=== PATIENT | female | born 1945 | race Caucasian/White ===

== ENCOUNTER 2017-01-04 16:20 | Inpatient (IN) | payer MEDICARE, OTHER ==
[~2017-01-04] VITALS: Ht 171.4 cm; Wt 71.0 kg
[2017-01-04 17:25] VITALS: BP 133/65; PULSE 77; RESP 18; O2SAT 100
--- NOTE | 2017-01-04 17:57 | ED.REPORT ---
HPI-Extremity Problem Lower Date of Service January 04, 2017 ED Provider: Roderick Mendenhall MD Pt is a healthy 71 y/o female presenting to the ED via EMS due to right ankle injury which occurred at about 14:00 today. The patient was hiking with her friend and began sliding 5 ft down a steep bank and attempted to slow her descent with her right foot which subsequently was caught under a branch. Medics had to carry her 1 mile + on a backboard. She denies any other injuries or sites of pain, any numbness, weakness, or inability to wiggle her toes. Medics report an obvious dislocation of the right ankle. DP and PT pulses were intact on scene and on route. She is not anticoagulated. NPO as of 13:30. Nursing Notes Stated Complaint: RIGHT ANKLE INJURY Chief Complaint: Extremity Trauma Nursing Notes Reviewed: Yes Allergies: Coded Allergies: No Known Allergies (Unverified , 01/04/17) Scheduled PRN oxyCODONE-Acetaminophen 5-325 mg (oxyCODONE-Acetaminophen 5-325 mg) 1 Each Tablet 1 TAB PO Q4H PRN PRN For Pain General Time Seen by MD: 17:39 Chief Complaint Ankle injury right Hx Obtained From: Patient, EMS Arrived By: Ambulance Onset Occurred: 1 - 4 hours ago Symptom Duration: Since onset Location: : Ankle right Quality: Painful Severity: Current: Moderate Severity: Maximum: Severe Exacerbated by: Range of motion Similar Sx Previous: No Past Medical History Past Medical History Bipolar disorder Anxiety Past Surgical History None reported Smoking History Former Smoker Ambulatory Status Independent Review of Systems Constitutional: Denies: Chills, Fever Musculoskeletal: Reports: Extremity pain, Extremity swelling Skin: Denies Rash Neurologic: Denies: Change LOC, Numbness, Syncope, Weakness Complete sys rev & neg: except as marked. Physical Exam Initial Vital Signs Vital Signs (First) Date Time Temp Pulse Resp B/P Pulse Ox O2 Delivery O2 Flow Rate FiO2 01/04/17 17:25 36.4 77 18 133/65 100 Room Air Initial VS: Reviewed, Vital signs normal Head / Eyes: Atraumatic, Normocephalic, PERRL ENT: Mucous membranes moist, Conjunctiva normal, No scleral icterus Neck: Supple, Full range of motion Respiratory: Breath sounds normal, Clear to auscultation, No respiratory distress Cardiovascular: Regular rate & rhythm, Heart sounds normal, Intact distal pulses Abdomen / GI: Soft, Non-tender Upper Extremities: Vascular intact, Neuro intact, No swelling, No tenderness Skin: Warm, Dry, No cyanosis Neurologic: Alert, Oriented, Nonfocal Psychiatric: Mood/affect normal, Behavior normal, Normal thought content Lower Extremity / Pelvis / MS: Neurologic intact, Vascular intact, No compartment syndrome Ankle / Foot: Neurologic intact, Vascular intact Obvious deformity of the right ankle with external rotation of the right foot Sensation intact Warm and well perfused DP and PT pulses intact General/Constitutional: Awake, Alert, No acute distress, Well appearing, Cooperative, Not toxic appearing Interpretation & Diagnostics Lab Results Interpretation Result Diagram: 01/04/17 1824 01/04/17 1824 Test 01/04/17 18:24 White Blood Count 14.7th/mm3 (3.8-10.1) Red Blood Count 3.76mil/mm3 (3.90-5.20) Hemoglobin 10.8g/dL (12.0-15.6) Hematocrit 31.4% (35.0-46.0) Mean Corpuscular Volume 83.5fL (81-100) Mean Corpuscular Hemoglobin 28.7pg (27.0-35.0) Mean Corpuscular Hemoglobin Concent 34.4% (32.0-37.0) Red Cell Distribution Width 12.5% (12.3-15.4) Platelet Count 305bil/L (150-400) Neutrophils (%) (Auto) 86.2% (40-74) Lymphocytes (%) (Auto) 8.2% (14-46) Monocytes (%) (Auto) 5.3% (4-12) Eosinophils (%) (Auto) 0% (0-5) Basophils (%) (Auto) 0.1% (0-3) Prothrombin Time 10.9sec (8.1-12.5) Prothromb Time International Ratio 1.02ratio Sodium Level 124mEq/L (134-144) Potassium Level 3.5mEq/L (3.5-5.2) Chloride Level 89mEq/L (97-108) Carbon Dioxide Level 19mmol/L (18-29) Blood Urea Nitrogen 15mg/dL (8-27) Creatinine 0.69mg/dL (0.57-1.00) Estimat Glomerular Filtration Rate 120mL/min (>59) Glucose Level 117mg/dL (60-99) Calcium Level 8.5mg/dL (8.5-10.1) Hold Benitez Top Tube Received (Received) X-Ray Interpretation Xray Interpretation: IMPRESSION: 1. Significant distal fibular and medial malleolus fractures with dislocation at the tibiotalar joint. 2. Medial subluxation of the talus, with cortical irregularity of the talus seen on lateral view suspicious for fracture. Dictated by: Kailyn Sanderson M.D. on 01/04/2017 at 18:56 Approved by: Kailyn Sanderson M.D. on 01/04/2017 at 18:58 Study Performed: 2 view X-Ray Ordered: Ankle right Interpretation / Wet Read by: Interpret - Radiologist Xray Interpretation: IMPRESSION: Comminuted distal fibular fracture as well as medial malleolar fracture. Significant dislocation of tibiotalar joint with subluxation of the talus. Please see x-ray ankle report for further details. Dictated by: Kailyn Sanderson M.D. on 01/04/2017 at 18:55 Approved by: Kailyn Sanderson M.D. on 01/04/2017 at 18:56 Study Performed: 2 view X-Ray Ordered: Tibia fibula right Interpretation / Wet Read by: Interpret - Radiologist Xray Interpretation: IMPRESSION: 1. Significant distal fibular and medial malleolus fractures with dislocation at the tibiotalar joint. 2. Medial subluxation of the talus, with cortical irregularity of the talus seen on lateral view suspicious for fracture. Dictated by: Kailyn Sanderson M.D. on 01/04/2017 at 18:49 Approved by: Kailyn Sanderson M.D. on 01/04/2017 at 18:55 Study Performed: 2 view X-Ray Ordered: Foot right Interpretation / Wet Read by: Interpret - Radiologist Xray Interpretation: IMPRESSION: Interval reduction of previous tibiotalar dislocation with distal fibular and medial malleolus fractures. Although the ankle is incompletely visualized, there is felt to be still significant dislocation at the tibiotalar joint. Dictated by: Kailyn Sanderson M.D. on 01/04/2017 at 20:18 Approved by: Kailyn Sanderson M.D. on 01/04/2017 at 20:20 Study Performed: s/p reduction X-Ray Ordered: Foot right Interpretation / Wet Read by: Interpret - Radiologist Xray Interpretation: IMPRESSION: Partial reduction of previous tibiotalar dislocation with medial malleolar and distal fibular fractures as above. Dictated by: Kailyn Sanderson M.D. on 01/04/2017 at 20:20 Approved by: Kailyn Sanderson M.D. on 01/04/2017 at 20:21 Study Performed: s/p reduction X-Ray Ordered: Ankle right Interpretation / Wet Read by: Interpret - Radiologist Procedures Proced Mod Sedation/Analgesia Time: 19:19 Procedure Performed by: ED physician Sedation Time: 10 - 15 min Consent / Setup: Informed consent provided, Consent from patient, Time-out performed, Hand hygiene observed, Stand sterile technique Indication: Fracture reduction, Ankle reduction Preparation: optometric assistant applied, Pulse oximeter applied, Constant attendance, IV access established, Eval last meal time, Supplemental oxygen, Procedure explained, Suction available, End tidal CO2 mon applied VS Prior to Procedure: All vital signs normal, O2 saturation normal, Blood pressure normal, Heart Rate normal, Respiratory rate normal Mallampati: Class & Anatomy: 2 top tonsil/uvula/palate Airway Exam: Normal facial anatomy, Normal neck anatomy, Normal anatomy CVS/Resp Exam: Normal breath sounds, Normal heart sounds Neuro Exam: Alert, No acute distress Sedation: Sedation: Propofol (60mg + 40 mg), Analgesia: Dilaudid ASA Classification: 1 normal healthy patient Response During Procedure: Handled secretions adeq, Maintained airway well, Oxygenation stable, Sedation appropriate, Vital signs stable Complications During/After: None Reversal: None required Mental Status After Procedure: Alert, Oriented X3 Post-Procedure: Alert prior to discharge, Ambulatory with assist, Pt rtn pre- proc baseline, Vital signs normal Attestation: I performed procedure, I performed sedation Reduction Dislocated Ankle Time: 19:19 Procedure Performed by: ED physician Consent / Setup: Informed consent provided, Consent from patient, Time-out performed, Oxygen administered, Pulse oximeter applied, optometric assistant applied , Hand hygiene observed, Stand sterile technique Procedural Sedation/Analgesia: Sedation: Propofol (60mg +40 mg), Analgesia: Dilaudid Which Ankle and Technique: Right ankle Neurovascular: Intact pre-procedure, Intact post-procedure Post-Procedure / Complications: Reduced per examination, Procedure successful ( partial), X-ray disloc reduced (partial), Posterior splint applied, Condition improved, Tolerated procedure well, Patient stable Re-Eval/Medical Decision Med Decision/Clinical Course Pt is a healthy 71 y/o female presenting to the ED via EMS due to right ankle injury which occurred at about 14:00 today. The patient was hiking with her friend and began sliding 5 ft down a steep bank and attempted to slow her descent with her right foot which subsequently was caught under a branch. Medics had to carry her 1 mile + on a backboard. She denies any other injuries or sites of pain, any numbness, weakness, or inability to wiggle her toes. Medics report an obvious dislocation of the right ankle. DP and PT pulses were intact on scene and on route. She is not anticoagulated. Meds given: Dilaudid, Zofran and IV fluids. Patient has been nothing by mouth for about 6 hours. Condition is neurovascularly intact in the affected extremity and the fracture is not open. Labs notable as below: CBC: Leukocytosis of 14.7, HCT of 34.1 CMP: unremarkable except for sodium of 124 which is reportedly her baseline Coag studies: normal Plain films obtained as below: 1. Significant distal fibular and medial malleolus fractures with dislocation at the tibiotalar joint. 2. Medial subluxation of the talus, with cortical irregularity of the talus seen on lateral view suspicious for fracture. Discussed with orthopedic surgery. Recommend reduction and splinting at the bedside. Procedural sedation performed with ketamine reduction and splinting performed as above. Patient tolerated procedure well. Follow-up films demonstrated reduction about the tibiotalar joint though there was some ongoing displacement. Films reviewed with orthopedic surgery. Only, patient remained in significant pain and was not able to adequately ambulate using crutches. Therefore she was admitted to the internal medicine service, made nothing by mouth at midnight with plan for operative management in the morning. She remained neurovascularly intact after reduction and splinting. Re-Evaluation/Progress #1: Time of Eval: 19:14 Re-Evaluation/Progress Note: Discussed plan for reduction. She agrees with plan for reduction. She understands risks and benefits of the procedure and the risks/benefits for sedation. Re-Evaluation/Progress #2: Time of Eval: 20:41 Re-Evaluation/Progress Note: Pt rechecked. She is still in quite a bit of pain but is willing to go home in care of her friend if she is able to walk. She would like to stay here in the ED for another hour to see if she is feeling any better. Re-Evaluation/Progress #3: Time of Eval: 21:57 Re-Evaluation/Progress Note: The patient is still feeling unwell with associated ankle pain. She failed the road test and her friend is now not comfortable caring for her at home because she has a very long driveway that the patient would have to walk the entire distance of. Plan to admit for pain control. Consultation #1: Referral / Consult Name: Harrison Reeves MD Consulted With: Orthopedic Call Returned at: 18:54 Manager Ecommerce: Agrees with eval, Agrees with plan Note: Will evaluate imaging and call back. 19:02 - recommends I perform reduction in the ED 20:40 - recommends I try to push on it medially now if possible. She should be seen in clinic first thing next week. 22:07 - recommends NPO at midnight, admit to hospitalist Consultation #2: Referral / Consult Name: Sree White MD Consulted With: Hospitalist Call Returned at: 22:18 Manager Ecommerce: Will see patient, Agrees with eval, Agrees with plan, Accepts admit Counseled Regarding: Diagnosis, Lab results, Need for admission Discharge & Departure Impression: Primary Impression: Dislocation of ankle, right, closed Encounter type: initial encounter Qualified Code: S93.04XA - Dislocation of right ankle joint, initial encounter Additional Impressions: Fracture of distal end of right fibula Encounter type: initial encounter Fracture type: closed Fracture morphology : unspecified fracture morphology Qualified Code: S82.831A - Other fracture of upper and lower end of right fibula, initial encounter for closed fracture Fracture of medial malleolus, right, closed Encounter type: initial encounter Fracture alignment: displaced Qualified Code: S82.51XA - Displaced fracture of medial malleolus of right tibia, initial encounter for closed fracture Fall from ground level Posttraumatic pain Disposition: ADMITTED TO HOSPITAL Discharge Condition All VS Reviewed: Yes Condition: Stable Referrals: Tami Bronson MD (PCP) DINORAH VILLALTA MD (Family) Harrison Reeves MD Scribe Attestation Portions of this note were transcribed by Jj Hamilton. IDr. Mendenhall personally performed the history, physical exam and medical decision-making; I reviewed and confirmed the accuracy of the information in the transcribed note. Signed by Bebeto Pimentel, 01/04/17 - 0 copies to: Tami Bronson MD; Harrison Reeves MD; DINORAH VILLALTA MD, Beck O MD January 04, 2017 17:57 JJ HAMILTON January 04, 2017 18:01
[2017-01-04] MEDS ORDERED: HYDROmorphone 1 mg/mL Inj IVPUSH ONE (18:00)
[2017-01-04] MEDS ORDERED: 0.9% Sodium Chloride 1,000 ML IV ONE ×2 (18:00→22:20)
[2017-01-04] MEDS ORDERED: Propofol 10 mg/mL 20 mL Inj IVPUSH ONE (18:25)
[2017-01-04 18:32] LABS: BASOPHILS % (AUTO) 0.1 % (0-3); EOSINOPHILS % (AUTO) 0 % (0-5); MONOCYTES % (AUTO) 5.3 % (4-12); Mean Corpuscular Hemoglobin 28.7 pg (27.0-35.0); Mean Corpuscular Volume 83.5 fL (81-100); NEUTROPHILS % (AUTO) 86.2 % (40-74); Platelet Count 305 bil/L (150-400)
[2017-01-04 18:46] LABS: INR 1.02 ratio
--- NOTE | 2017-01-04 18:56 | DRSVH ---
PROCEDURE: X-RAY RIGHT FOOT, TWO VIEWS ([id number]) INDICATIONS: fall TECHNIQUE: 3 views of the foot were acquired. COMPARISON: [facility], CR, XR ANKLE 2VW RT, 01/04/2017, 17:45. FINDINGS: Bones: There is a comminuted fracture with significant displacement of the distal fibular diaphysis w ith approximately 31 mm fracture overlap. There is a displaced medial malleolar fracture. There is co mplete disruption at the tibiotalar joint with both the fibula and tibia medially dislocated. The ta brittany appears to be medially subluxed. There is cortical irregularity overlying anterior tibia on later al view. Soft tissues: An ankle effusion is present. Achilles tendon appears normal. IMPRESSION: 1. Significant distal fibular and medial malleolus fractures with dislocation at the tibiotalar joint . 2. Medial subluxation of the talus, with cortical irregularity of the talus seen on lateral view susp icious for fracture. Dictated by: Kailyn Sanderson M.D. on 01/04/2017 at 18:49 Approved by: Kailyn Sanderson M.D. on 01/04/2017 at 18:55
--- NOTE | 2017-01-04 18:58 | DRSVH ---
PROCEDURE: X-RAY RIGHT TIBIA/FIBULA, TWO VIEWS ([id number]) INDICATIONS: fall TECHNIQUE: 2 views of the tibia and fibula were acquired. COMPARISON: None. FINDINGS: Bones: There is a comminuted fracture with significant displacement of the distal fibula diaphysis. Medial malleolar fracture is also present. There is significant dislocation at the tibiotalar joint. There is medial subluxation of the talus. Soft tissues: No suspicious soft tissue calcifications or masses. IMPRESSION: Comminuted distal fibular fracture as well as medial malleolar fracture. Significant disl ocation of tibiotalar joint with subluxation of the talus. Please see x-ray ankle report for further details. Dictated by: Kailyn Sanderson M.D. on 01/04/2017 at 18:55 Approved by: Kailyn Sanderson M.D. on 01/04/2017 at 18:56
--- NOTE | 2017-01-04 19:00 | DRSVH ---
PROCEDURE: X-RAY RIGHT ANKLE, TWO VIEWS ([id number]) INDICATIONS: fall TECHNIQUE: 3 views of the ankle were acquired. COMPARISON: None. FINDINGS: Bones: There is a comminuted fracture with significant displacement of the distal fibular diaphysis with approximately 31 mm fracture overlap. There is a displaced medial malleolar fracture. There is complete disruption at the tibiotalar joint with both the fibula and tibia mediall y dislocated. The talus appears to be medially subluxed. There is cortical irregularity overlying anterior tibia on lateral view. A posterior malleolus fracture is not definitively identified. Soft tissues: An ankle effusion is present. Achilles tendon appears normal. IMPRESSION: 1. Significant distal fibular and medial malleolus fractures with dislocation at the tibiotalar joint. 2. Medial subluxation of the talus, with cortical irregularity of the talus seen on lateral view suspicious for fracture. Dictated by: Kailyn Sanderson M.D. on 01/04/2017 at 18:56 Approved by: Kailyn Sanderson M.D. on 01/04/2017 at 18:58
[2017-01-04 19:02] VITALS: BP 102/55; PULSE 59; RESP 14; O2SAT 96
[2017-01-04] MEDS ORDERED: OXYC1TAB24 PO (19:47)
[2017-01-04] MEDS ORDERED: _Ondansetron ODT 4 mg Tablet PO PRN (20:20)
[2017-01-04] MEDS ORDERED: _oxyCODONE/APAP 5-325 mg Tablet PO PRN (20:20)
--- NOTE | 2017-01-04 20:21 | DRSVH ---
PROCEDURE: X-RAY RIGHT FOOT, TWO VIEWS ([id number]) INDICATIONS: post reduction TECHNIQUE: 2 views of the foot were acquired. COMPARISON: [facility], CR, XR TIBIA FIBULA 2VW RT, 01/04/2017, 17:45. [facility], CR, XR ANKLE 2VW RT, 01/04/2017, 17:45. [facility], CR, XR FOOT 2VW RT, 01/04/2017, 17:45. [facility], CR, XR ANKLE 3VW RT, 01/04/2017, 19:28. FINDINGS: Bones: There has been interval reduction of the previously identified fracture. Distal fibular and me dial malleolus fractures are again identified. There remains an appearance of dislocation at the tibi otalar joint, although mildly less prominent when compared to prior exam. It is not completely visual ized on this examination. Osseous fragment is noted overlying the anterior talus, appears to be the m edial malleolar fragment. Soft tissues: Ankle effusion is present. Achilles tendon appears normal. IMPRESSION: Interval reduction of previous tibiotalar dislocation with distal fibular and medial mall eolus fractures. Although the ankle is incompletely visualized, there is felt to be still significant dislocation at the tibiotalar joint. Dictated by: Kailyn Sanderson M.D. on 01/04/2017 at 20:18 Approved by: Kailyn Sanderson M.D. on 01/04/2017 at 20:20
--- NOTE | 2017-01-04 20:23 | DRSVH ---
PROCEDURE: X-RAY RIGHT ANKLE, MINIMUM THREE VIEWS ([id number]) INDICATIONS: post reduction TECHNIQUE: 3 views of the ankle were acquired. COMPARISON: [facility], CR, XR TIBIA FIBULA 2VW RT, 01/04/2017, 17:45. [facility], [facility], XR ANKLE 2VW RT, 01/04/2017, 17:45. [facility], CR, XR FOOT 2VW RT, 01/04/2017, 17:45. [facility], CR, XR FOOT 2VW RT, 01/04/2017, 19:28. FINDINGS: Bones: In the interval since the prior exam, there has been reduction of the previous tibiotalar disl ocation. While the degree of dislocation has been reduced, there remains significant medial oriented dislocation of the fibula and tibia in relation to the tibiotalar joint. Distal diaphyseal comminuted fibular fracture as well as medial talar fractures are present. There is a mild appearance of talar subluxation, unchanged without grossly visualized talar fracture. As previously noted, nondisplaced t alar fracture cannot be definitively excluded. Soft tissues: No tibiotalar joint effusion. Achilles tendon appears normal. IMPRESSION: Partial reduction of previous tibiotalar dislocation with medial malleolar and distal fib ular fractures as above. Dictated by: Kailyn Sanderson M.D. on 01/04/2017 at 20:20 Approved by: Kailyn Sanderson M.D. on 01/04/2017 at 20:21
[2017-01-04 22:04] VITALS: BP_SYST 130; PULSE 74; O2SAT 98
[2017-01-04] MEDS ORDERED: Alum-Mag Hydrox-Simeth 30 mL Suspension PO PRN ×2 (22:10→23:10)
[2017-01-04] MEDS ORDERED: Ondansetron 2 mg/mL 2 mL Inj IVPUSH PRN ×2 (22:10→23:10)
[2017-01-04] MEDS ORDERED: Ondansetron 2 mg/mL 2 mL Inj IVPUSH ONE (22:20)
--- NOTE | 2017-01-04 22:36 | PCM.CONORT ---
Subjective Date of Surgery: January 05, 2017 Surgeon Admitting Provider: Attending Provider: Primary Care Physician:Tami Bronson MD Other Provider: Reason for Consultation: right ankle pain Allergy Allergies: Coded Allergies: No Known Allergies (Unverified , 01/04/17) Medications oxyCODONE-Acetaminophen 5-325 mg (oxyCODONE-Acetaminophen 5-325 mg) 1 Each Tablet 1 TAB PO Q4H PRN PRN For Pain Prescribed by: SUMEET ETIENNE MD History History of ENT Problems?: No HEENT History: Denies:: Abnormal Airway Cataracts Difficult Intubation Dysphagia Glaucoma Hearing Problem Sinus Problem TMJ Denture Type: None Teeth Condition: Within Normal Limits Hx of Heart Problems?: No Cardiovascular History: Denies:: Congestive Heart Failure Hx of Respiratory Problem?: No Respiratory History: Denies:: Tuberculosis Hx Neurologic Problems?: No Hx of GI Problems?: No Hx of Problems?: No HX of Peritoneal Dialysis: No Hx Musculoskeletal Problems?: No Other History/Comment Tricia Romero is a 71 y/o female presenting to the ED with right ankle injury which occurred earlier today while she was hiking and orthopaedic consult was requested. The patient was hiking with her friend and began sliding 5 ft down a steep bank after which her right foot got caught under a branch. She reports numbness and tingling to her entire foot initially and an attempted reduction was performed in the ER. She denies any other injuries or complaints today. She denies any fever, chills, chest pain, SOB, or LOC. She reports a history of smoking on and off with history of COPD and reports recently quitting smoking with recent cigarette one year ago Hx of Psycho/Social Problems?: No Hx Surgeries?: No Other History/Comment per record Hx Any Other Health Problems?: No Hx Diabetes: No Hx Alcohol Use: NoHx Substance Use: No Smoking Status: Former Smoker Have You Smoked inLast 12 mo: No (quit a year ago) Objective Exam Vital Signs & I/O Vital Sign- Last 8 Hours Date Time Temp Pulse Resp B/P Pulse Ox O2 Delivery O2 Flow Rate FiO2 01/04/17 22:04 74 130/ 98 Room Air 01/04/17 19:02 59 14 102/55 96 Room Air 01/04/17 17:25 36.4 77 18 133/65 100 Room Air Lab & Micro Results Laboratory Tests Test 01/04/17 18:24 White Blood Count 14.7th/mm3 (3.8-10.1) Red Blood Count 3.76mil/mm3 (3.90-5.20) Hemoglobin 10.8g/dL (12.0-15.6) Hematocrit 31.4% (35.0-46.0) Mean Corpuscular Volume 83.5fL (81-100) Mean Corpuscular Hemoglobin 28.7pg (27.0-35.0) Mean Corpuscular Hemoglobin Concent 34.4% (32.0-37.0) Red Cell Distribution Width 12.5% (12.3-15.4) Platelet Count 305bil/L (150-400) Neutrophils (%) (Auto) 86.2% (40-74) Lymphocytes (%) (Auto) 8.2% (14-46) Monocytes (%) (Auto) 5.3% (4-12) Eosinophils (%) (Auto) 0% (0-5) Basophils (%) (Auto) 0.1% (0-3) Prothrombin Time 10.9sec (8.1-12.5) Prothromb Time International Ratio 1.02ratio Sodium Level 124mEq/L (134-144) Potassium Level 3.5mEq/L (3.5-5.2) Chloride Level 89mEq/L (97-108) Carbon Dioxide Level 19mmol/L (18-29) Blood Urea Nitrogen 15mg/dL (8-27) Creatinine 0.69mg/dL (0.57-1.00) Estimat Glomerular Filtration Rate 120mL/min (>59) Glucose Level 117mg/dL (60-99) Calcium Level 8.5mg/dL (8.5-10.1) Hold Benitez Top Tube Received (Received) Result Diagram: 01/04/174 01/04/171823 Review of Systems: Constitutional: Negative, except as otherwise mentioned in the history above. Ophthalmologic: Negative, except as otherwise mentioned in the history above. Cardiovascular: Negative, except as otherwise mentioned in the history above. Respiratory: Negative, except as otherwise mentioned in the history above. Gastrointestinal: Negative, except as otherwise mentioned in the history above. Genitourinary: Negative, except as otherwise mentioned in the history above. Musculoskeletal: Negative, except as otherwise mentioned in the history above. Neurological: Negative, except as otherwise mentioned in the history above. Psychiatric: Negative, except as otherwise mentioned in the history above. Hematologic/Lymphatic: Negative, except as otherwise mentioned in the history above. Allergic/Immunologic: Negative, except as otherwise mentioned in the history above. H&P Surgical Exam Exam Musculoskeletal: CONST: WD,WN, NAD, A+OX3 OCULAR: EOMI, no conjunctivitis/icterus ENT: no deformities, scars or lesions CARDIAC: Pulse is regular. No cyanosis,clubbing,edema RESP: regular,unlabored MSK: able to wiggle all toes, SILT all toes, 2+ DP Right Foot/Ankle - scars, +swelling, -erythema, - atrophy or asymmetry. TTP medial and lateral ankle alignment- neutral, gait: antalgic, edema- minimal ROM Strength/ Pain deferred Signs instability on anterior/internal rotation drawer: na instability on anterior/external rotation drawer:na syndesmotic squeeze: - Lefty's: - Farrell's: - Tinel's: - single limb heel rise: neg patella tilt: - Additional Information 3 view xray of the right demonstrates a displaced comminuted trimalleolar ankle fracture H&P Preop Plan Impression right ankle trimalleolar fracture dislocation Problems: Risks & Benefits * We have reviewed the risks and benefits as well as the alternatives to surgery. All questions were answered to the patient's satisfaction and a counseling note to that effect. The patient has provided informed consent. * I have counseled the patient regarding the deleterious effects that smoking during the perioperative period can have upon wound healing, infection rates, and the overall rate of complications. Plan NWB RLE recommend reduction/ splinting keep elevated ice for pain/inflammationi oral pain meds NPO after midnight for OR in AM plan for right ankle ORIF medical optimization prior to surgery continue medical management per primary please call with questions I discussed at length the risks, complications and implications of tobacco products and its effect on the treatment plan and outcomes. The patient has voiced understanding and has agreed to cease consumption of such products for a minimum of the duration of the entire course of treatment. Harrison Reeves MD January 04, 2017 22:36
--- NOTE | 2017-01-04 23:02 | PCM.HPMED ---
Subjective Date of Service January 04, 2017 Primary Provider: Admitting Physician: Primary Care Physician: Tami Bronson MD Attending Physician: Chief Complaint: Fractured ankle History of Present Illness: 71-year-old female with chronic history of hyponatremia and manic depression and anxiety presents via EMS to the ED due to ankle pain that began while hiking , around 1300 today. This patient was hiking and slid off the [place], slight approximately 5 feet. During the slide her ankle got trapped under a branch and snapped. 911 was called from the [place] and continuous miner operator helper arrived to carry the patient helped. Patient was given ketamine which caused her to vomit once. She is brought to the emergency department where multiple views were obtained showing a comminuted fibular fracture with dislocation of the talus. Orthopedics were consulted and the patient was reduced in emergency department. has are to consult on the patient with a plan for ORIF tomorrow. Patient denies additional symptoms including chest pain, shortness of breath, abdominal pain, syncope, lightheadedness, fever, chills, or other review of systems. Patient states that she was diagnosed at 21 with hyponatremia but she does not know the actual etiology. In the ED the patient had a mild leukocytosis of 14.7 with left shift and hemoglobin of 10.8. Sodium was 124, chloride was 89, and glucose was 117. Review of Systems: Complete review of systems performed; pertinent positives and negatives per history of present illness; all other systems were reviewed and are negative. Allergies Coded Allergies: No Known Allergies (Unverified , 01/04/17) Home Medications Divalproex 750mg Lamotrigine 100mg Fluoxetine 10mg (1 on odd days, 2 on even days) Clonazepam 0.5 mg up to TID PMH Chronic hyponatremia Manic depression/anxiety Surgical History None Family History No reported osteoporosis in family Social History Hx Alcohol Use: No Hx Substance Use: No Hx Tobacco Use: Yes Smoking Status: Former Smoker (37-[id number]-jhla history) Exam Vital Signs Vital Sign - Last Date Time Temp Pulse Resp B/P Pulse Ox O2 Delivery O2 Flow Rate FiO2 01/04/17 22:04 74 130/ 98 Room Air 01/04/17 19:02 14 01/04/17 17:25 36.4 Exam General: Patient awake alert and conversive HEENT; pupils are constricted but still reactive, EOMI Lymph: no lymphadenopathy Cardio: Regular rate and rhythm Respiratory: CTA bilaterally, no wheezes or crackles Abdomen: Positive bowel sounds, no tenderness, no distention Extremities: Right leg is in a splint with Hiren bandages; big toe positive for sensation; no edema Psych: Flat affect, talkative Neuro: Mild decrease in sensation and lower extremities, left foot more prominent as it is available for full evaluation Skin: No rashes noted Musculoskeletal: Right leg in splint Lab and Diagnostics Result Diagram: 01/04/17182301/04/171823 X-Rays, CTs and MRIs Tib-fib x-ray IMPRESSION: Comminuted distal fibular fracture as well as medial malleolar fracture. Significant dislocation of tibiotalar joint with subluxation of the talus. Please see x-ray ankle report for further details. Dictated by: Kailyn Sanderson M.D. on 01/04/2017 at 18:55 Foot x-ray 1. Significant distal fibular and medial malleolus fractures with dislocation at the tibiotalar joint. 2. Medial subluxation of the talus, with cortical irregularity of the talus seen on lateral view suspicious for fracture. Dictated by: Kailyn Sanderson M.D. on 01/04/2017 at 18:49 Ankle x-ray IMPRESSION: 1. Significant distal fibular and medial malleolus fractures with dislocation at the tibiotalar joint. 2. Medial subluxation of the talus, with cortical irregularity of the talus seen on lateral view suspicious for fracture. Dictated by: Kailyn Sanderson M.D. on 01/04/2017 at 18:56 Foot x-ray IMPRESSION: Interval reduction of previous tibiotalar dislocation with distal fibular and medial malleolus fractures. Although the ankle is incompletely visualized, there is felt to be still significant dislocation at the tibiotalar joint. Dictated by: Kailyn Sanderson M.D. on 01/04/2017 at 20:18 Ankle x-ray IMPRESSION: Partial reduction of previous tibiotalar dislocation with medial malleolar and distal fibular fractures as above. Dictated by: Kailyn Sanderson M.D. on 01/04/2017 at 20:20 Assessment & Plan 75-year-old female with chronic hyponatremia and manic depression who presents to the ED via EMS after ankle fracture while hiking. Right ankle trimalleolar fracture with dislocation; this on admission; ongoing -Right ankle was reduced and splinted in the ED and orthopedic consult was obtained -Patient be kept nothing by mouth after midnight anticipating ORIF tomorrow -Pain management with morphine Chronic hyponatremia; present admission; ongoing -since 21 years old; asymptomatic; appears to be euvolemic -Urine sodium -We will hold off on fluids for now except po as patient is nothing by mouth at midnight Acute leukocytosis; present on admission; ongoing -Patient presents an elevated white count likely due to stress from recent fracture and vomiting -No subjective or objective signs of infection except for the leukocytosis -Recheck in a.m. -UA ordered Manic depression; chronic; ongoing -Continue home Divalproex and lamotrigine -Fluoxetine will have to be held tomorrow morning -Clonazepam will be available for anxiety as this is taken as outpatient Normocytic, Normochromic anemia; unknown chronicity; present admission -Patient presents with a hemoglobin of 10.8 with normal indices. -Iron studies ordered and pending -Unknown at this blood loss as the patient denies any recent history of blood loss. High risk meds meds: IV morphine Disposition: Patient admitted to the [facility] with expected length of stay greater than 2 minutes due to severity presentation, duration treatment, and was adverse events. Pain Evaluation: Adequate Pain Control Resuscitation Status: CPR: Attempt Resuscitation Attending Statement The patient was seen and examined together with Dr. Vallecillo on 01/04 and I agree with the history, exam and plan as outlined in the note above. Georges Vallecillo DO January 04, 2017 23:02 Sree White MD January 05, 2017 01:05
[2017-01-04] MEDS ORDERED: Polyethylene Glycol (PEG) 17 Gm Powder PO PRN (23:10)
[2017-01-04 23:35] VITALS: BP 130/55; PULSE 74; RESP 14; O2SAT 98
[2017-01-04 23:45] LABS: Unsaturated Iron Binding 234.2 ug/dL
[2017-01-05] VITALS (13 sets, daily range): BP systolic 105–140; BP diastolic 61–75; PULSE 63–87; RESP 12–18; O2SAT 94–97
[2017-01-05] MEDS: lamoTRIgine 100 mg Tablet PO SCH ×2 (01:00→21:32)
--- NOTE | 2017-01-05 02:59 | NUR ---
Admit to [facility] received phone report from ED at 2315, pt arrived to floor per annette accompanied by oil field technician at 2345, pt unable to ambulate to bed, 2pa slide assist to bed, pt a/o able to make needs known, oriented pt to call light and room, has IV saline lock at [facility], patent,noted R ankle has cast, wrapped with marino bandage, pt able to report full sensations on toes, able to move freely, good pulses and Cap refill, call light in reach at all times.
[2017-01-05 04:28] LABS: APPEARANCE,URINE CLEAR (CLEAR,HAZY); COLOR,URINE YELLOW (YELLOW); OCCULT BLOOD,URINE SMALL (NEGATIVE); UROBILINOGEN,URINE NORMAL (NORMAL)
[2017-01-05 06:53] LABS: Mean Corpuscular Hemoglobin 28.6 pg (27.0-35.0); Mean Corpuscular Volume 84.4 fL (81-100); NEUTROPHILS % (AUTO) 64.7 % (40-74); Platelet Count 306 bil/L (150-400)
[2017-01-05 06:54] LABS: BASOPHILS % (AUTO) 0.1 % (0-3); EOSINOPHILS % (AUTO) 0 % (0-5); MONOCYTES % (AUTO) 9.2 % (4-12)
[2017-01-05 07:08] LABS: Magnesium 1.9 mg/dL (1.6-2.6); Phosphorus 4.6 mg/dL (2.5-4.9)
[2017-01-05] MEDS ORDERED: Ondansetron 2 mg/mL 2 mL Inj ONE (07:15)
[2017-01-05] MEDS ORDERED: Dexamethasone 4 mg/mL Inj ONE (07:15)
[2017-01-05] MEDS ORDERED: Propofol 10,000 mCg/mL 20 mL Inj ONE (07:15)
[2017-01-05] MEDS ORDERED: Divalproex (QD) 500 mg ER24 Tablet PO SCH (08:30)
--- NOTE | 2017-01-05 08:30 | NUR ---
OR Transport Report given to Rosie, patient A/O x3, pain level of 3/10 per patient, more likely a discomfort from her cast. NPO maintained. Patient will be transferred to [facility] post surgery. Patient aware. All belongings given and transferred to room 1030.
[2017-01-05] MEDS ORDERED: CeFAZolin Inj 2 gm / 50mL D5W IV ONE (09:11)
[2017-01-05] MEDS ORDERED: DIVA500T14 PO (09:18)
[2017-01-05] MEDS ORDERED: LAMO100T66 PO (09:18)
[2017-01-05] MEDS ORDERED: FLUO10CA20 PO (09:23)
[2017-01-05] MEDS ORDERED: KLO5T PO (09:23)
[2017-01-05] MEDS ORDERED: Lactated Ringer's 1,000 ML IV ONE (09:35)
--- NOTE | 2017-01-05 09:53 | PCM.HPANE ---
Patient Data Date of Service: January 05, 2017 Surgeon Admitting Provider:Sree White MD Attending Provider:Sree White MD Primary Care Physician:Tami Bronson MD Other Provider:Nilesh Ivory Anesthesia Reason for Visit Rt Ankle Fracture, Dislocation Ht/WT & BMI Height (Feet): 5 Height (Inches): 7.50 Weight (Kilograms): 71.000 Body Mass Index 24.28 Allergies Coded Allergies: No Known Allergies (Unverified , 01/04/17) Past Anesthesia History Anesthesia History: Denies:: Abnormal Airway, Difficult Intubation Diabetes History Hx Diabetes?: No MRSA MRSA: No Medications Active Scripts oxyCODONE-Acetaminophen 5-325 mg 1 Each Tablet1 Tab PO Q4H PRN For Pain #30 TABLET Ref 0 Prov:Roderick Mendenhall MD 01/04/17 Reported Medications Clonazepam 0.5 Mg Tablet0.5 Mg PO BID PRN For Anxiety Ref 0 01/05/17 Fluoxetine 10 Mg [id number] Mg PO DAILY Ref 0 01/05/17 Lamotrigine ER 100 Mg Tab.[id number] Mg PO HS Ref 0 01/05/17 Divalproex ER 500 Mg Tab.[id number] Mg PO HS Ref 0 *DAILY DOSING ONLY* Swallowed whole without chewing to avoid local irritation of the mouth and throat. 01/05/17 History History of ENT Problems?: No HEENT History: Denies:: Abnormal Airway Cataracts Difficult Intubation Dysphagia Glaucoma Hearing Problem Sinus Problem TMJ Denture Type: None Teeth Condition: Within Normal Limits Hx of Heart Problems?: No Cardiovascular History: Denies:: Congestive Heart Failure Hx of Respiratory Problem?: No Respiratory History: Denies:: Tuberculosis Hx Neurologic Problems?: No Hx of GI Problems?: No Other GI Pertinent History: pt reports hemorrohoids Hx of Problems?: No HX of Peritoneal Dialysis: No Female Hx: Denies:: Currently Hx Musculoskeletal Problems?: No Hx of Psycho/Social Problems?: No Psycho Social History: Positive for:: Anxiety Bipolar Disorder Hx Depression Denies:: Suicide Attempt Hx Surgeries?: No Hx Any Other Health Problems?: No History Blood Transfusions: Positive for:: Accept Blood Products? Denies:: Blood Transfusions Hx Diabetes: No Hx Alcohol Use: NoHx Substance Use: No Smoking Status: Former Smoker (22-pshp-lppf history) Stop/Bang Treated for Sleep Apnea?: No Do You Have a CPAP Machine?: No S-Snoring: Do You Snore Loudly: No T-Tired: feel tired, fatigued: Yes O-Obsered: Observed not breath: No P-Blood Pressure: treated: No B- Body Mass Index > 35 kg/m2: No A- Age over 50: Yes N- Neck Large Circumference: No G- Gender Male: No KI Total Score: 1 KI Risk Assessment: Low Risk, <3 Yes Risk Assessment Category Category 1A: Patient has history of documented sleep apnea, and HAS NOT received any narcotic, sedative or anesthesia administration during this stay. Category 1B: Patient has history of documented sleep apnea, and HAS received any narcotic , sedative or anesthesia administration during this stay Category 2: Patient has SUSPECTED Obstructive Sleep Apnea, and HAS received any narcotic , sedative or anesthesia administration during this stay. Category 3: Patient has SUSPECTED Obstructive Sleep Apnea and HAS NOT received narcotic, sedative or anesthesia administration during this stay. Category 4: Outpatient in Procedural Areas with known sleep apnea or who screen positive for High Risk via the STOP/BANG questionnaire. Exam Exam Vital Signs Vital Signs Date Time Temp Pulse Resp B/P Pulse Ox O2 Delivery O2 Flow Rate FiO2 01/05/17 08:23 36.2 69 15 105/69 97 Room Air 01/05/17 05:25 37.0 71 17 129/74 97 Room Air General Appearance: Alert, Oriented X3, Cooperative, No Acute Distress HEENT/AIRWAY: MP 2, Neck Movement Lungs: Clear to Auscultation, Normal Air Movement Heart: Exam Unremarkable, Regular Rate/Rhythm, No Murmurs/Rubs/Gallops Meds/Labs/Diagnostics Admission Meds Current Medications Hydromorphone HCl (Dilaudid Inj) 1 mg ONCE ONCE IVPUSH Last administered on 18:14; Start 01/04/17 at 18:00; Stop 01/04/17 at 18:03; Status DC Ondansetron HCl 4 mg 4 mg ONCE ONCE PO Last administered on 01/04/17 18:14; Start 01/04/17 at 18:00; Stop 01/04/17 at 18:03; Status DC Sodium Chloride (Normal Saline) 1,000 ml @ 0 mls/hr Q0M ONCE IV Last administered on 01/04/17 19:15; Start 01/04/17 at 18:00; Stop 01/04/17 at 18:02 ; Status DC Propofol (Diprivan Inj) 100 mg ONCE ONCE IVPUSH Last administered on 19:20; Start 01/04/17 at 18:25; Stop 01/04/17 at 18:26; Status DC Ondansetron HCl (Zofran ODT) 4 mg ONCE ONCE PO Last administered on 01/04/17 20:39; Start 01/04/17 at 20:20; Stop 01/04/17 at 20:21; Status DC Ondansetron HCl (Zofran Inj) 4 mg ONCE ONCE IVPUSH Last administered on 00:34; Start 01/04/17 at 22:20; Stop 01/04/17 at 22:21; Status DC Lamotrigine (LaMICtal) 100 mg HS PO Last administered on 01/05/17 01:00; Start 01/04/17 at 23:26 Fluoxetine HCl (Prozac) 10 mg DAILY PO Last administered on 01/05/17 08:21; Start 01/05/17 at 08:30 Labs Test 01/04/17 18:24 01/05/17 01:00 01/05/17 06:05 Prothrombin Time 10.9sec (8.1-12.5) Prothromb Time International Ratio 1.02ratio Iron Level 46ug/dL (35-150) Total Iron Binding Capacity 280ug/dL (250-450) Percent Iron Saturation 16%sat (15-50) Unsaturated Iron Binding 234.2ug/dL Ferritin 189ng/mL (13-150) Hold Benitez Top Tube Received (Received) Urine Color Yellow (YELLOW) Urine Appearance Clear (CLEAR,HAZY) Urine pH 6.0 (5.0-8.0) Urine Specific [place] 1.021 (1.003-1.035) Urine Protein Negativemg/dL (NEG,TRACE) Urine Glucose (UA) Negativemg/dL (NEGATIVE) Urine Ketones 40mg/dL (NEGATIVE) Urine Occult Blood Small (NEGATIVE) Urine Nitrite Negative (NEGATIVE) Urine Bilirubin Negative (NEGATIVE) Urine Urobilinogen Normalmg/dL (NORMAL) Urine Leukocyte Esterase Negative (NEGATIVE) Urine RBC 3-10/hpf (0-2) Urine WBC 0-5/hpf (0-5) Urine Epithelial Cells Few/hpf (NONE-MOD) Urine Crystals None seen (NONE SEEN) Urine Bacteria Few/hpf (NONE-FEW) Urine Hyaline Casts None/lpf (NONE) Urine Granular Casts None seen (NONE SEEN) Urine Waxy Casts None seen (NONE SEEN) Urine Red Blood Cell Casts None seen (NONE SEEN) Urine White Blood Cell Casts None seen (NONE SEEN) Urine Mucus Present (None Seen) Urine Trichomonas None seen (NONE SEEN) Urine Yeast None (NONE SEEN) Urine Culture Reflexed Not indicated Urine Random Sodium 93mEq/L White Blood Count 8.6th/mm3 (3.8-10.1) Red Blood Count 3.71mil/mm3 (3.90-5.20) Hemoglobin 10.6g/dL (12.0-15.6) Hematocrit 31.3% (35.0-46.0) Mean Corpuscular Volume 84.4fL (81-100) Mean Corpuscular Hemoglobin 28.6pg (27.0-35.0) Mean Corpuscular Hemoglobin Concent 33.9% (32.0-37.0) Red Cell Distribution Width 12.6% (12.3-15.4) Platelet Count 306bil/L (150-400) Neutrophils (%) (Auto) 64.7% (40-74) Lymphocytes (%) (Auto) 25.8% (14-46) Monocytes (%) (Auto) 9.2% (4-12) Eosinophils (%) (Auto) 0% (0-5) Basophils (%) (Auto) 0.1% (0-3) Sodium Level 126mEq/L (134-144) Potassium Level 3.9mEq/L (3.5-5.2) Chloride Level 90mEq/L (97-108) Carbon Dioxide Level 20mmol/L (18-29) Blood Urea Nitrogen 12mg/dL (8-27) Creatinine 0.62mg/dL (0.57-1.00) Estimat Glomerular Filtration Rate 136mL/min (>59) Glucose Level 111mg/dL (60-99) Calcium Level 8.8mg/dL (8.5-10.1) Phosphorus Level 4.6mg/dL (2.5-4.9) Magnesium Level 1.9mg/dL (1.6-2.6) Total Bilirubin 0.4mg/dL (0.0-1.2) Aspartate Amino Transf (AST/SGOT) 20U/L (0-50) Alanine Aminotransferase (ALT/SGPT) 8U/L (0-32) Alkaline Phosphatase 54U/L (25-165) Total Protein 5.9g/dL (6.4-8.4) Albumin 3.8g/dL (3.4-5.0) Procalcitonin 0.06ng/mL (0.00-0.08) Thyroid Stimulating Hormone (TSH) 1.820uIU/mL (0.450-4.500) Plan Impression Patient chart reviewed, patient interviewed and anesthestic plan with risks, benefits, and alternatives discussed, and informed consent obtained. NPO per Anesth. Guidelines: Yes ASA Physical Status: ASA2 Mod Systemic Disease Anesthetic Plan: GA Bene/Risks/Altern/Consents: Yes HP Complete Prior to Induction: Yes Hai Bernard MD January 05, 2017 09:53
[2017-01-05] MEDS ORDERED: Ropivacaine-PF 0.5% 30 mL Inj INFILTRATE ONE (10:14)
[2017-01-05] MEDS ORDERED: Ketorolac 15 mg/mL Inj IVPUSH ONE (11:10)
--- NOTE | 2017-01-05 11:16 | PCM.ORTHOP ---
Orthopedic Operative Report Date of Service: January 05, 2017 Pre Operative Diagnosis Right ankle closed trimalleolar fracture Post Operative Diagnosis Same Procedure Right ankle trimalleolar open reduction internal fixation Surgeon Surgeon: Harrison Reeves Assistants: Angel Vallecillo Indication for Procedure Right ankle fracture Findings Per dictation Details of Procedure Indications: Tricia Romero is a 71-year-old female who sustained a right closed trimalleolar ankle fracture dislocation. A clear explanation was given to the patient regarding the condition present, and the available conservative and surgical options. It was emphasized that the risks and benefits of surgery include but are not limited to infection, wound healing problems, damage to adjacent structures such as nerves, blood vessels and tendons, intermediate disability and pain, arthritis, hypersensitivity, deep vein thrombosis, pulmonary embolism, broken hardware, failure of surgery, need for further procedures at time of surgery or later, cast related problems, loss of limb or life. The patient was given an explanation and the patient voiced understanding of what to expect after the procedure or surgery, the limitations in activities of daily living, the likely duration for post operative recovery and the instructions that are to be followed. At the end the patient was invited to seek clarification or ask further questions but there were none. The patient voiced understanding of the entire consultation. Description of Operation: The patient was brought to the operating room. Patient name and surgical site were confirmed. Preoperative antibiotics were given. The patient was placed supine on the operating table. General anesthesia was administered. A well padded tourniquet was placed on the leg. The leg was then prepped and draped in the usual sterile fashion. The leg was exsanguinated and the tourniquet was inflated. The lateral malleolus was addressed first. An incision was made over the lateral ankle. Subcutaneous dissection was performed down to the lateral malleolus. Care was taken to avoid injury to the superficial peroneal nerve. The fracture was cleaned of debris and interposed soft tissue. The fracture was reduced to anatomic alignment using reduction clamps and preliminary fixation techniques. There was comminution and the bone was severely osteopenic; however, the main fragments were amenable to lag screw fixation and a lag screw was placed for provisional fixation. Fluoroscopy was used to confirm satisfactory reduction. A distal fibular Arthrex plate was then placed and secured in position using 3.5 mm fully threaded cortical screws proximally and 3.5 mm locking screws distally. Solid bony purchase was achieved with a combination of locking and nonlocking screws. The medial side was addressed next. The medial malleolus was amenable to screw fixation. The fracture was reduced to anatomic alignment using preliminary fixation techniques and a 1.5 mm K-wire. Fluoroscopy was used to confirm satisfactory reduction. 2 cannulated 4.0 mm fully threaded cancellous screw were placed; however, given the osteopenic bone, poor purchase was noted and a 3rd screw was placed distally from the tip of the medial malleolus and into metaphyseal bone with solid bony purchase. Final radiographs confirmed anatomic reduction of the fracture, christian of the ankle mortise, and adequate placement of hardware. The ankle joint was stressed and the syndesmosis was found to be stable along with no subluxation of the joint on the lateral view so the decision was made not to fix the posterior malleolus fracture which was stable. The tourniquet was deflated. Hemostasis was obtained with electrocautery. The wounds were thoroughly irrigated with bulb irrigation. The wounds were then closed in layers. The incisions were cleaned and dressed with Adaptic, gauze, and soft roll. A well padded plaster splint was then placed and wrapped with an Hiren bandage. Estimated blood loss was 15 cc. There were no immediate complications. The patient was transferred to the PACU in stable condition. I was present for the entire procedure. Description of Findings: osteopenic bone with comminution of Kemp B fibula fracture, medial malleolus, and small posterior malleolus fracture involving less than 10 % of the articular surface with no instability on stressing MEDICAL EDUCATOR SURGEON: During the operation, the services of physician school office assistant were medically indicated and necessary to provide exposure of the operative site for the surgical procedure and to maintain the limb in a proper position to carry out the operation safely and efficiently. Without the qualified information assistant being present, it would have extended the operative procedure and made the procedure technically more difficult to perform. Specimens Obtained: none Please keep dressing clean dry and intact. Do not remove dressing until follow- up in clinic. Do not weight-bear on the affected extremity. You may use crutches or a walker/scooter to help with ambulation on your unaffected extremity. You will follow up in clinic in 10-14 days for suture removal, and placement of new Steri-Strips. You will follow-up with me in clinic with new x- rays at this time. You will follow-up with me at 6 weeks postop and may start weightbearing as tolerated when radiographic healing noted which may take an additional 4-6 weeks. Please keep the affected extremity elevated when possible. You may use ice and/or heat as needed for comfort (preferably ice during the first 48-72 hours). Please feel free to call with any further questions, comments, and/or concerns. Grafts, Implants: Implants-See Implant Record Complications There were no periprocedural complications identified. Condition Stable Anesthetic Administered: GA Catheters: None Output, Estimated Blood Loss: 15 Blood Admin during surgery: No Surgical Cast or Splint: Well-padded Short Leg Splint Surgical Specimen Removed: No Specimen sent to Pathology: No copies to: Harrison Reeves MD, Christopher L MD January 05, 2017 11:16
--- NOTE | 2017-01-05 11:32 | NUR ---
Social Work: Initial Assessment Attempt SW attempted to complete initial assessment, but the patient was out of the room for surgery. SW will attempt to complet Initial assessment when patient returns. Theodora Clements, MEAGAN, ACM
[2017-01-05] MEDS ORDERED: Lactated Ringer's 1,000 ML IV SCH (11:51)
[2017-01-05] MEDS ORDERED: Lactated Ringer's 500 ML IV PRN (11:51)
--- NOTE | 2017-01-05 11:54 | PCM.ANEP1 ---
Post Anesthesia PACU Phase 1 Assessment Vital Signs Vital Signs Date Time Temp Pulse Resp B/P Pulse Ox O2 Delivery O2 Flow Rate FiO2 01/05/17 11:40 71 15 140/64 96 Room Air 01/05/17 11:35 80 18 126/72 95 Room Air 01/05/17 11:31 37.2 71 16 136/65 96 Room Air 01/05/17 08:23 36.2 69 15 105/69 97 Room Air 01/05/17 05:25 37.0 71 17 129/74 97 Room Air Anesthetic Administered: GA Level of Alertness: Awake, talking FRANZ's with Equal Strength: Yes Pain: No (medicated see EMAR for details) Pain Scale Score: 0 Nausea or Vomiting: No CV Function and Hydration: Yes Airway Device: Oralpharangeal Airway Oxygen Delivery: Simple Mask Lungs: Clear to Auscultation, Normal Air Movement Dermatome Level: Full Sensation PACU Phase 2 Assessment Complications: No Follow up Care: N/A Patient Instructions Provided: Yes Hai Bernard MD January 05, 2017 11:53
[2017-01-05] MEDS ORDERED: EPHEDrine Sulfate 50 mg/mL Inj IVPUSH PRN (11:55)
[2017-01-05] MEDS ORDERED: MetoCLOpramide 5 mg/mL 2 mL Inj IVPUSH PRN (11:55)
[2017-01-05] MEDS ORDERED: Atropine 0.4 mg/mL Inj IVPUSH PRN (11:55)
[2017-01-05] MEDS ORDERED: Ondansetron 2 mg/mL 2 mL Inj IVPUSH PRN (11:55)
[2017-01-05] MEDS ORDERED: Dexamethasone 4 mg/mL Inj IVPUSH PRN (11:55)
[2017-01-05] MEDS ORDERED: Phenylephrine 10,000 mCg/mL Inj IVPUSH PRN (11:55)
[2017-01-05] MEDS ORDERED: HYDROmorphone 1 mg/mL Inj IVPUSH PRN (11:55)
[2017-01-05] MEDS: fentaNYL-PF 50 mCg/mL 2 mL Inj IVPUSH PRN ×3 (12:05→19:47)
--- NOTE | 2017-01-05 12:40 | NUR ---
PostOp Pt comes from PACU A&OX4. IV in use Rt AC. RA. FLORINDA wrap and splint under on Right Ankle. Numbness in Right toes at this time. Pt c/o pain 4/10 on inside of ankle. All belongings in patients cabinet and transferred from [facility]. Friends at bedside Care continues
--- NOTE | 2017-01-05 13:09 | PCM.PNMED ---
Subjective Date of Service January 05, 2017 Subjective Patient is postop and still groggy after having her ankle fixated. She has no sensation at this point down there. No chest pain cough or shortness of breath. No abdominal pain or confusion. No overnight events. Exam Vital Signs Vital Sign - Last Date Time Temp Pulse Resp B/P Pulse Ox O2 Delivery O2 Flow Rate FiO2 01/05/17 12:42 36.9 68 17 123/71 96 Room Air Intake and Output 01/04/17 01/04/17 01/05/17 Cumulative From/Thru 15:00 23:00 07:00 01/04/17 17:25 - 01/05/17 05:25 Intake Total 999 ml 100 ml 1099 ml Output Total 285 ml 285 ml Balance 999 ml -185 ml 814 ml Intake Oral 100 ml 100 ml IV Total 999 ml 999 ml Output Urine Total 285 ml 285 ml Exam Alert and oriented -3, no distress. Fluent speech Anicteric sclera. Lungs are clear with normal rate and effort Heart is regular without murmur gallop or rub Abdomen soft nontender, flat Extremities are free of edema. Right lower extremity is in a short leg splint. Good cap refill all digits. Skin is free of rash or lesions. IVs and Medications Medications Reviewed: Medications were reviewed in detail Lab and Diagnostics Result Diagram: 01/05/17 0601/05/17 0605 X-Rays, CTs and MRIs Tib-fib x-ray IMPRESSION: Comminuted distal fibular fracture as well as medial malleolar fracture. Significant dislocation of tibiotalar joint with subluxation of the talus. Please see x-ray ankle report for further details. Dictated by: Kailyn Sanderson M.D. on 01/04/2017 at 18:55 Foot x-ray 1. Significant distal fibular and medial malleolus fractures with dislocation at the tibiotalar joint. 2. Medial subluxation of the talus, with cortical irregularity of the talus seen on lateral view suspicious for fracture. Dictated by: Kailyn Sanderson M.D. on 01/04/2017 at 18:49 Ankle x-ray IMPRESSION: 1. Significant distal fibular and medial malleolus fractures with dislocation at the tibiotalar joint. 2. Medial subluxation of the talus, with cortical irregularity of the talus seen on lateral view suspicious for fracture. Dictated by: Kailyn Sanderson M.D. on 01/04/2017 at 18:56 Foot x-ray IMPRESSION: Interval reduction of previous tibiotalar dislocation with distal fibular and medial malleolus fractures. Although the ankle is incompletely visualized, there is felt to be still significant dislocation at the tibiotalar joint. Dictated by: Kailyn Sanderson M.D. on 01/04/2017 at 20:18 Ankle x-ray IMPRESSION: Partial reduction of previous tibiotalar dislocation with medial malleolar and distal fibular fractures as above. Dictated by: Kailyn Sanderson M.D. on 01/04/2017 at 20:20 Assessment & Plan 75-year-old female with chronic hyponatremia and manic depression who presents to the ED via EMS after ankle fracture while hiking. Right ankle trimalleolar fracture with dislocation; this on admission; status post ORIF. Postoperative monitoring and pain control. We will use oral pain medications with fentanyl IV for breakthrough. Chronic hyponatremia; present admission; ongoing and stable. -since 21 years old; asymptomatic; appears to be euvolemic -Urine sodium -We will follow BMP tomorrow morning. Acute leukocytosis; present on admission; ongoing -Patient presents an elevated white count likely due to stress from recent fracture and vomiting -No subjective or objective signs of infection except for the leukocytosis -Recheck in a.m. -UA ordered Manic depression; chronic; ongoing and stable -Continue home Divalproex and lamotrigine -Fluoxetine will have to be held tomorrow morning -Clonazepam will be available for anxiety as this is taken as outpatient Normocytic, Normochromic anemia; unknown chronicity; present admission -Patient presents with a hemoglobin of 10.8 with normal indices. -Iron studies ordered and pending -Unknown at this blood loss as the patient denies any recent history of blood loss. High risk meds meds: IV morphine Disposition: The patient will potentially be discharged tomorrow depending how she does with physical therapy. She has a strong preference to go home with her friend to her friend's house. There are 3 steps on entry and along uneven path to the house. Resuscitation Status: CPR: Attempt Resuscitation Unruly Valdivia MD January 05, 2017 13:09
[2017-01-05] MEDS: CeFAZolin Inj 2 GM in IV Premix 1 EACH IV SCH (16:43)
[2017-01-05] MEDS: HYDROcodone-APAP 5-325 mg Tablet PO PRN (21:33)
[2017-01-05] MEDS: Heparin 5,000 Unit/mL Inj SUBQ SCH (21:42)
[2017-01-06] MEDS: CeFAZolin Inj 2 GM in IV Premix 1 EACH IV SCH (00:41)
[2017-01-06] MEDS: fentaNYL-PF 50 mCg/mL 2 mL Inj IVPUSH PRN (05:24)
[2017-01-06] MEDS: HYDROcodone-APAP 5-325 mg Tablet PO PRN ×5 (05:35→21:27)
[2017-01-06 06:47] VITALS: BP 126/76; PULSE 67; RESP 16; O2SAT 93
[2017-01-06] MEDS ORDERED: Ondansetron 2 mg/mL 2 mL Inj ONE (07:50)
[2017-01-06] MEDS ORDERED: fentaNYL-PF 50 mCg/mL 2 mL Inj ONE (07:50)
[2017-01-06] MEDS ORDERED: Propofol 10,000 mCg/mL 20 mL Inj ONE (07:50)
[2017-01-06] MEDS ORDERED: Divalproex (QD) 250 mg ER24 Tablet PO SCH ×2 (08:30→21:00)
[2017-01-06] MEDS: Heparin 5,000 Unit/mL Inj SUBQ SCH ×2 (09:04→21:27)
--- NOTE | 2017-01-06 11:12 | NUR ---
Evaluation completed. Please go to "Notes" then click on "Assessments and Notes" (bottom left corner of screen). Then select appropriate discipline tab on top of screen.
--- NOTE | 2017-01-06 12:12 | PCM.PNORTH ---
Subjective Date of Service: January 06, 2017 Visit Information: Reason for Visit Rt Ankle Fracture, Dislocation Surgery/Surgery Date R ANKLE REDUCTION/EXT FIXATION 01/05/17 Post-Op Day # Date of Admission: January 04, 2017 at 23:20 Hospital Day # Subjective Patient awake and alert supine in bed and well-positioned. No complaints of pain at this time. How long discussion with the patient this morning regarding her disposition and other concerns regarding her mobility and acquisition of specific DME etc. I have reassured patient that physical therapy, social science instructor, orthopedics and hospitalist service are all communicating and working together behind the scenes to facilitate her care and what she needs. Patient relates this morning that she is bipolar and has been in a progressive phase for many months and this is affecting her coping ability. Postop General: No Complaints, No Shortness of Breath, No Chest Pain Pain Management: PO Objective Exam Objective Alert and oriented 3 and pleasant. Interoperative splint and dressing are clean dry and intact. Calf and thigh are soft and nontender. Toe wiggle and sensation are intact at right lower extremity distally. Leyva is absent. SCD is present on the left lower extremity. Ice in place on splint and I have placed this behind patient's knee. Vital Signs and I/O Vital Sign - Last Date Time Temp Pulse Resp B/P Pulse Ox O2 Delivery O2 Flow Rate FiO2 01/06/17 06:47 36.8 67 16 126/76 93 Room Air Intake and Output 01/05/17 01/05/17 01/06/17 Cumulative From/Thru 15:00 23:00 07:00 01/04/17 17:25 - 01/06/17 06:47 Intake Total 900 ml 800 ml 527 ml 3326 ml Output Total 15 ml 1000 ml 850 ml 2150 ml Balance 885 ml -200 ml -323 ml 1176 ml Intake Oral 800 ml 450 ml 1350 ml IV Total 900 ml 77 ml 1976 ml Output Urine Total 1000 ml 850 ml 2135 ml Estimated Blood Loss 15 ml 15 ml # Bowel Movements 0 0 Result Diagram: 01/05/17 0605 01/05/17 0605 General Appearance: Alert, Oriented X3, Cooperative, No Acute Distress Extremities: No Compartment Syndrom Noted, Thigh & Calf Soft/Nontender Postop Sensory Motor: Distal Motor Intact, Movement in Toes, Distal Sensation Intact Activity: Activity per PT, Ambulate with PT (nonweightbearing on the right lower extremity using a walker, or knee scooter.) Catheters: None Assessment & Plan Impression Patient is a 71-year-old female who is 1 day status post right ankle fracture ORIF performed on 01/05/2017. Patient relates today that she is bipolar and in a depressive phase and is worried about coping with the decisions that need to be made regarding her discharge disposition, insurance issues etc. Physically patient appears to be doing well today and I have reassured her that hospitalist service, orthopedics, physical therapy and social science instructor are all communicating behind scenes to ensure she has the best outcome and is placed appropriately with the help she needs. Problems: Plan Postoperative day #1 from right ankle dry mouth fracture with bimalleolar ORIF performed on 01/05/[address] Harrison Reeves. Strict nonweightbearing on the right lower extremity using a walker or knee scooter if appropriate. Continue formal physical therapy for mobility, gait safety. Continue by mouth pain medications as needed. Nursing please avoid IV pain medications. Continue ASA 81 mg EC by mouth daily 4 weeks for DVT prophylaxis per Dr. Reeves. I have communicated with Dr. Caicedo from hospitalist service and patient is planned to stay in-house one more night to attempt to improve mobility prior to discharge. Follow-up in 2 weeks at [facility] orthopedic clinic with Dr. Harrison Reeves for removal of yung, application of Steri-Strips with right three-view ankle x-rays on arrival. Follow up in 6 weeks at [facility] orthopedic clinic with Dr. Harrison Reeves for checkup with right three-view ankle x-rays on arrival. Orthopedics thanks hospitalist service for their help in the medical management of this patient. Anticipate discharge by hospitalist service on postop day #2 after discharge disposition is secured and if mobility is appropriate and patient is cleared medically for discharge. VTE Prophylaxis: SCDs (left lower extremity SCD), YEISON Hose (left lower extremity thigh high YEISON hose), Other (ASA 81 mg EC by mouth daily 4 weeks postop for DVT prophylaxis) Resuscitation Status: CPR: Attempt Resuscitation Angel Vallecillo PA-C January 06, 2017 12:12
--- NOTE | 2017-01-06 12:59 | PCM.PNMED ---
Subjective Date of Service January 06, 2017 Subjective s/p ORIF, pain controlled but patient was able to take only steps with physical therapy Exam Vital Signs Vital Sign - Last Date Time Temp Pulse Resp B/P Pulse Ox O2 Delivery O2 Flow Rate FiO2 01/06/17 06:47 36.8 67 16 126/76 93 Room Air Intake and Output 01/05/17 01/05/17 01/06/17 Cumulative From/Thru 15:00 23:00 07:00 01/04/17 17:25 - 01/06/17 06:47 Intake Total 900 ml 800 ml 527 ml 3326 ml Output Total 15 ml 1000 ml 850 ml 2150 ml Balance 885 ml -200 ml -323 ml 1176 ml Intake Oral 800 ml 450 ml 1350 ml IV Total 900 ml 77 ml 1976 ml Output Urine Total 1000 ml 850 ml 2135 ml Estimated Blood Loss 15 ml 15 ml # Bowel Movements 0 0 Exam Alert and oriented -3, no distress. Fluent speech Anicteric sclera. Lungs are clear with normal rate and effort Heart is regular without murmur gallop or rub Abdomen soft nontender, flat Extremities are free of edema. Right ankle cleanly dressed surgical site. Good cap refill all digits. Skin is free of rash or lesions. IVs and Medications Medications Reviewed: Medications were reviewed in detail Lab and Diagnostics Result Diagram: 01/05/1760401/05/17604 X-Rays, CTs and MRIs Tib-fib x-ray IMPRESSION: Comminuted distal fibular fracture as well as medial malleolar fracture. Significant dislocation of tibiotalar joint with subluxation of the talus. Please see x-ray ankle report for further details. Dictated by: Kailyn Sanderson M.D. on 01/04/2017 at 18:55 Foot x-ray 1. Significant distal fibular and medial malleolus fractures with dislocation at the tibiotalar joint. 2. Medial subluxation of the talus, with cortical irregularity of the talus seen on lateral view suspicious for fracture. Dictated by: Kailyn Sanderson M.D. on 01/04/2017 at 18:49 Ankle x-ray IMPRESSION: 1. Significant distal fibular and medial malleolus fractures with dislocation at the tibiotalar joint. 2. Medial subluxation of the talus, with cortical irregularity of the talus seen on lateral view suspicious for fracture. Dictated by: Kailyn Sanderson M.D. on 01/04/2017 at 18:56 Foot x-ray IMPRESSION: Interval reduction of previous tibiotalar dislocation with distal fibular and medial malleolus fractures. Although the ankle is incompletely visualized, there is felt to be still significant dislocation at the tibiotalar joint. Dictated by: Kailyn Sanderson M.D. on 01/04/2017 at 20:18 Ankle x-ray IMPRESSION: Partial reduction of previous tibiotalar dislocation with medial malleolar and distal fibular fractures as above. Dictated by: Kailyn Sanderson M.D. on 01/04/2017 at 20:20 Additional Diagnostics Date of Service: January 05, 2017 Pre Operative Diagnosis Right ankle closed trimalleolar fracture Post Operative Diagnosis Same Procedure Right ankle trimalleolar open reduction internal fixation Surgeon Surgeon: Harrison Reeves Assistants: Angel Vallecillo Indication for Procedure Right ankle fracture Assessment & Plan 75-year-old female with chronic hyponatremia and manic depression who presents to the ED via EMS after ankle fracture while hiking. # Right ankle trimalleolar fracture with dislocation; this on admission; status post ORIF. -Patient control with Percocet -PT recomend SNf but they will do repeat eval later today #Chronic hyponatremia; present admission; ongoing and stable. -since 21 years old; asymptomatic; appears to be euvolemic -We will follow BMP tomorrow morning. #Acute leukocytosis; present on admission; ongoing -Patient presents an elevated white count likely due to stress from recent fracture and vomiting -No subjective or objective signs of infection except for the leukocytosis -Recheck in a.m. -UA ordered #Manic depression; chronic; ongoing and stable -Continue home Divalproex and lamotrigine -Fluoxetine will have to be held tomorrow morning -Clonazepam will be available for anxiety as this is taken as outpatient #Normocytic, Normochromic anemia; unknown chronicity; present admission -Patient presents with a hemoglobin of 10.8 with normal indices. -Iron studies ordered and pending -Unknown at this blood loss as the patient denies any recent history of blood loss. High risk meds meds: IV morphine Disposition: The patient will potentially be discharged tomorrow 01/07 depending how she does with physical therapy. She has a strong preference to go home with her friend to her friend's house. There are 3 steps on entry and along uneven path to the house. -PT recomend SNf but they will do repeat eval later today VTE Prophylaxis: SCDs (left lower extremity SCD), YEISON Hose (left lower extremity thigh high YEISON hose), Other (ASA 81 mg EC by mouth daily 4 weeks postop for DVT prophylaxis) VTE Mechanical Devices: Intermittant Pneumatic CD Resuscitation Status: CPR: Attempt Resuscitation Celestine Prado MD January 06, 2017 12:59
--- NOTE | 2017-01-06 14:37 | NUR ---
Social Work Note - Initial Assessment: D/A: See Initial Assessment. The Pt is a 71 y/o female that is now on day 2 of hospitalization for right ankle fracture, dislocation. Readmission Risk Score is 2. The Pt's PCP is MD Skyler Bronson and her insurance is [facility], no LTC or VA benefits reported. EMR reviewed. SW met with the Pt to explain role and discuss discharge planning, SW telephone number written on white board. The Pt lives independently alone in a third floor public housing apartment with elevator access. Pt does not have an Advanced Care Directive, paperwork provided. The Pt does not use any DME and has no HH/SNF history. The Pt does not drive and prefers to use a bicycle. The Pt reports that she uses housing authority, food stamp, and heating assistance. She also sees Psychiatrist Zofia Farrell for her medications and ROD CUP FILLER Luisa Grady for counseling needs. PT eval completed, PT recommending discharge home with HH. order recieved for HH arrangement. HH preference list provided to Pt. Pt's discharge location is undetermined at this point, whether back to her home with friend support or to stay with a friend. PT also recommending a tub bench and FWW, Pt reports that her friend will be looking into equipment rentals at [facility]. SW to follow up with the Pt tomorrow regarding discharge location and HH choice. SW will continue to follow. P: The Pt is not medically stable for discharge today, likely to discharge home vs friend's home with HH when medically stable. SW to follow up with Pt regarding HH choice and equipment rental. SW will continue to follow. SIMÓN Anderson Display Department Manager SIMÓN Khoury Addendum: 01/06/17 at 1455 by NEHEMIAH WANG Amended: Links added.
[2017-01-06 14:57] VITALS: BP 122/71; PULSE 65; RESP 18; O2SAT 93
--- NOTE | 2017-01-06 15:32 | NUR ---
Pain/Activity Rates pain 3-4/10. 1 Vicodin given prn with good effect. Up to BSC and bathroom with nursing SBA and FWW. Ambulated in adams with PT.
[2017-01-06 20:53] VITALS: BP 121/70; PULSE 70; RESP 16; O2SAT 93
[2017-01-06] MEDS: lamoTRIgine 100 mg Tablet PO SCH (21:26)
[2017-01-06 23:58] VITALS: BP 117/73; PULSE 60; RESP 16; O2SAT 93
[2017-01-07] MEDS: HYDROcodone-APAP 5-325 mg Tablet PO PRN ×3 (04:02→13:37)
[2017-01-07 06:05] VITALS: BP 134/85; PULSE 68; RESP 18; O2SAT 97
--- NOTE | 2017-01-07 06:09 | NUR ---
NOC Pt slept well over night. The only time she woke was to use the bathroom. Pt uses walker and is a SBA to the bathroom, but is a little ataxic with ambulation. Pt states her ataxia is from her medications she takes on routine basis. Voiding large amounts of pale, yellow urine. Pain well controlled with norco about every 4-5 hours. R ankle splint in place. C/D/I. Pt reports baseline neuropathy from her mid chowdhury down to her feet. She states that she has n/t at baseline. Good cap refill to R foot. R toes are swollen. Pt keeps elevated on pillows. Pt eager for d/c. Pt wants to go to friends house, not to SNF.
[2017-01-07] MEDS: Heparin 5,000 Unit/mL Inj SUBQ SCH (08:39)
[2017-01-07 08:51] VITALS: BP 124/74; PULSE 88; RESP 18; O2SAT 95
--- NOTE | 2017-01-07 10:42 | PCM.DIMED ---
Discharge Instructions Date of Service January 07, 2017 Dates of Hospitalization January 04, 2017 at 23:20 Discharge Diagnosis Discharge Diagnosis # Right ankle trimalleolar fracture with dislocation; this on admission; status post Right ankle trimalleolar open reduction internal fixation 01/05 #Chronic hyponatremia; present admission; ongoing and stable. #Manic depression; chronic; ongoing and stable #Normocytic, Normochromic anemia; unknown chronicity; present admission Diet Discharge Diet: Low fat, Low Sodium Activity Discharge Activity: Home Health Phyical Therapy Call your provider Call your provider for: Fever or Chills, Shortness of breath, Bleeding, Chest pain, Vomitting, Excessive diarrhea, Weakness (unilateral) Patient Instructions Patient Instructions You were hospitalized due to right ankle fracture and underwent ORIF. Please continue physical therapy at home. Please continue pain medications as needed. Home health physical therapy requested. Please follow-up with PCP in 1 week. per orthopedics instructions Strict nonweightbearing on the right lower extremity using a walker or knee scooter if appropriate. Continue formal physical therapy for mobility, gait safety. Continue by mouth pain medications as needed. Continue ASA 81 mg EC by mouth daily 4 weeks for DVT prophylaxis per Dr. Reeves. Follow-up in 2 weeks at [facility] orthopedic clinic with Dr. Harrison Reeves for removal of yung, application of Steri-Strips with right three-view ankle x-rays on arrival. Follow up in 6 weeks at [facility] orthopedic clinic with Dr. Harrison Reeves for checkup with right three-view ankle x-rays on arrival. Follow-up Provider: Tami Bronson MD Follow-up with PCP in: 1 week Provider: Harrison Reeves MD Follow-up in: 2 weeks Celestine Prado MD January 07, 2017 10:42
[2017-01-07] MEDS ORDERED: OXYC1TAB24 PO (10:49)
[2017-01-07] MEDS ORDERED: ASPI-973 PO (10:49)
--- NOTE | 2017-01-07 10:55 | NUR ---
HH CHOICE LIST PROVIDED.
--- NOTE | 2017-01-07 10:55 | NUR ---
Social Work- Readiness for Discharge Data: EMR reviewed. Pt is on day 3 of hospitalization for right ankle fracture, dislocation per H&P. Pt is medically ready for discharge. SW received orders from provider to arrange [facility] RN PT and bath aide. SW spoke with pt at bedside regarding HH, explained role of HH. Pt agreeable to HH, HH CHOICE LIST PROVIDED. Pt has no HH preference, SW consulted rotating vendor calendar and made referral to [facility] bath aide. Access given. JAIME spoke with Cecilio Sheffield regarding pt's discharge, Cecilio states [facility] can accept pt, JAIME provided address of pt as pt will discharge to her friend Amanda Crow's home [phone]. completed F2F in hard chart. SW followed up with pt regarding plan, DME, and transportation. Pt and Amanda and SW spoke via speaker phone regarding discharge plan. Per phone conversation, Amanda is going to care for pt at her home for about a week. Pt's friend Manuela is providing transportation and has obtained a fww, bath bend, and BSC. Manuela will have this available at discharge to bring over to Amanda's home. All updated and agreeable to plan. Pt to discharge to Amanda's home in [place] with [facility] PT and bath aide prior to returning to her own home in [facility] Manuela will transport via POV. Pt has necessary DME available. SW will continue to follow. Assessment: Pt for whom [facility] PT and bath aide is medically necessary Plan: F2F in hard chart. Pt to discharge to Amanda's home in [place] with [facility] and bath aide prior to returning to her own home in [place], Manuela will transport via POV. Pt has necessary DME available. SW will continue to follow. Nuha Javier TECHNOLOGY INTERN
--- NOTE | 2017-01-07 12:36 | PCM.DIORTH ---
Ortho Discharge Instruction Date of Service: January 07, 2017 Dates of Hospitalization Date of Hospital Admission January 04, 2017 at 23:20 Providers Admitting Physician: Sree White MD Primary Care Physician: Tami Bronson MD Attending Physician: Sree White MD Activity Discharge Activity-General: Elevate & ice extremity Right Lower Extremity: Non-weight Bearing Discharge Assist Device: Front Wheeled Walker Dressing and Incisional Care Discharge Dressing Care: Keep dressing clean, dry & intact Discharge Hygiene: May shower (with splint covered) Additional Instructions Additional Instructions Weightbearing: Nonweightbearing on the right lower extremity with a front wheeled walker or crutches. Wound care: Splint should remain clean, dry and intact until 2 week appointment. Shower instructions: May shower with splint covered with a plastic bag. DO NOT GET SPLINT WET. Follow-up plan: In 2 weeks at [facility] with PA for wound check and transition into a cast and at [address] Reeves with x-rays. Work on leg strengthening exercises at home including leg lifts. Ice and elevate frequently to reduce discomfort and swelling. Liya Barrow PA-C January 07, 2017 12:36
--- NOTE | 2017-01-07 12:38 | PCM.PNORTH ---
Subjective Date of Service: January 07, 2017 Visit Information: Reason for Visit Rt Ankle Fracture, Dislocation Surgery/Surgery Date R ANKLE REDUCTION/EXT FIXATION 01/05/17 Post-Op Day # 2 Date of Admission: January 04, 2017 at 23:20 Hospital Day # Subjective Patient states her pain has been well-controlled. She stitches been doing some physical therapy. She states she is arranged to stay with a friend and is planning to home health physical therapy help her. She states she has obtained a walker, commode, and we will get a shower chair. No complaints at this time. Postop General: No Complaints, No Shortness of Breath, No Chest Pain Pain Management: PO Objective Exam Objective Sitting up in bed Vital Signs and I/O Vital Sign - Last Date Time Temp Pulse Resp B/P Pulse Ox O2 Delivery O2 Flow Rate FiO2 01/07/17 08:51 36.9 88 18 124/74 95 Room Air Intake and Output 01/06/17 01/06/17 01/07/17 Cumulative From/Thru 15:00 23:00 07:00 01/04/17 17:25 - 01/07/17 06:05 Intake Total 1100 ml 650 ml 5076 ml Output Total 1800 ml 1550 ml 5500 ml Balance -700 ml -900 ml -424 ml Intake Oral 1100 ml 650 ml 3100 ml IV Total 1976 ml Output Urine Total 1800 ml 1550 ml 5485 ml Estimated Blood Loss 15 ml # Bowel Movements 0 0 0 Result Diagram: 01/05/17 0605 01/05/17 0605 General Appearance: Alert, Oriented X3, Cooperative, No Acute Distress Postop Sensory Motor: Movement in Toes, Distal Sensation Intact, NVI Distally SURGICAL WOUND : Wound Location/Description Splint c/d/i Incision General Appearance: No Direct Observation Activity: Activity per PT, Ambulate with PT (nonweightbearing on the right lower extremity using a walker, or knee scooter.) Catheters: None Assessment & Plan Impression Postoperative day #2 right ankle ORIF Problems: Plan Weightbearing: Nonweightbearing on the right lower extremity with a front wheeled walker or crutches. Wound care: Splint should remain clean, dry and intact until 2 week appointment. Shower instructions: May shower with splint covered with a plastic bag. DO NOT GET SPLINT WET. Follow-up plan: In 2 weeks at [facility] with PA for wound check and transition into a cast and at [address] Reeves with x-rays. Work on leg strengthening exercises at home including leg lifts. Ice and elevate frequently to reduce discomfort and swelling. VTE Prophylaxis: SCDs (left lower extremity SCD), YEISON Hose (left lower extremity thigh high YEISON hose), Other (ASA 81 mg EC by mouth daily 4 weeks postop for DVT prophylaxis) Resuscitation Status: CPR: Attempt Resuscitation Liya Barrow PA-C January 07, 2017 12:38
--- NOTE | 2017-01-07 12:45 | PCM.DC.MED ---
Discharge Summary Date of Service January 07, 2017 Dates of Hospitalization Date of Hospital Admission January 04, 2017 at 23:20 Date of Discharge: January 07, 2017 Providers: Admitting Physician: Sree White MD Primary Care Physician: Tami Bronson MD Attending Physician: Sree White MD Diagnosis at Time of Discharge Diagnosis at Time of Discharge # Right ankle trimalleolar fracture with dislocation; this on admission; status post Right ankle trimalleolar open reduction internal fixation 01/05 #Chronic hyponatremia; present admission; ongoing and stable. #Manic depression; chronic; ongoing and stable #Normocytic, Normochromic anemia; unknown chronicity; present admission Consultations Orthopedics Procedures XRay, CTs & MRIs Tib-fib x-ray IMPRESSION: Comminuted distal fibular fracture as well as medial malleolar fracture. Significant dislocation of tibiotalar joint with subluxation of the talus. Please see x-ray ankle report for further details. Dictated by: Kailyn Sanderson M.D. on 01/04/2017 at 18:55 Foot x-ray 1. Significant distal fibular and medial malleolus fractures with dislocation at the tibiotalar joint. 2. Medial subluxation of the talus, with cortical irregularity of the talus seen on lateral view suspicious for fracture. Dictated by: Kailyn Sanderson M.D. on 01/04/2017 at 18:49 Ankle x-ray IMPRESSION: 1. Significant distal fibular and medial malleolus fractures with dislocation at the tibiotalar joint. 2. Medial subluxation of the talus, with cortical irregularity of the talus seen on lateral view suspicious for fracture. Dictated by: Kailyn Sanderson M.D. on 01/04/2017 at 18:56 Foot x-ray IMPRESSION: Interval reduction of previous tibiotalar dislocation with distal fibular and medial malleolus fractures. Although the ankle is incompletely visualized, there is felt to be still significant dislocation at the tibiotalar joint. Dictated by: Kailyn Sanderson M.D. on 01/04/2017 at 20:18 Ankle x-ray IMPRESSION: Partial reduction of previous tibiotalar dislocation with medial malleolar and distal fibular fractures as above. Dictated by: Kailyn Sanderson M.D. on 01/04/2017 at 20:20 Other Diagnostics Date of Service: January 05, 2017 Pre Operative Diagnosis Right ankle closed trimalleolar fracture Post Operative Diagnosis Same Procedure Right ankle trimalleolar open reduction internal fixation Surgeon Surgeon: Harrison Reeves Assistants: Angel Vallecillo Indication for Procedure Right ankle fracture Brief History 71-year-old female with chronic history of hyponatremia and manic depression and anxiety presents via EMS to the ED due to ankle pain that began while hiking , around 1300 today. This patient was hiking and slid off the [place], slight approximately 5 feet. During the slide her ankle got trapped under a branch and snapped. 911 was called from the [place] and hypnotherapist arrived to carry the patient helped. Patient was given ketamine which caused her to vomit once. She is brought to the emergency department where multiple views were obtained showing a comminuted fibular fracture with dislocation of the talus. Orthopedics were consulted and the patient was reduced in emergency department. has are to consult on the patient with a plan for ORIF tomorrow. Patient denies additional symptoms including chest pain, shortness of breath, abdominal pain, syncope, lightheadedness, fever, chills, or other review of systems. Patient states that she was diagnosed at 21 with hyponatremia but she does not know the actual etiology. In the ED the patient had a mild leukocytosis of 14.7 with left shift and hemoglobin of 10.8. Sodium was 124, chloride was 89, and glucose was 117. Hospital Course 75-year-old female with chronic hyponatremia and manic depression who presents to the ED via EMS after ankle fracture while hiking. # Right ankle trimalleolar fracture with dislocation; this on admission; status post ORIF. -Pain control with Percocet -Continue home physical therapy -Continue aspirin for DVT prophylaxis #Chronic hyponatremia; present admission; ongoing and stable. -since 21 years old; asymptomatic; appears to be euvolemic #Manic depression; chronic; ongoing and stable -Continue home Divalproex and lamotrigine -Fluoxetine will have to be held tomorrow morning -Clonazepam will be available for anxiety as this is taken as outpatient #Normocytic, Normochromic anemia; unknown chronicity; present admission Disposition: Discharged to home Condition on discharge stable Exam Vital Signs (Last) Date Time Temp Pulse Resp B/P Pulse Ox O2 Delivery O2 Flow Rate FiO2 01/07/17 08:51 36.9 88 18 124/74 95 Room Air Exam Alert and oriented -3, no distress. Anicteric sclera. Lungs are clear with normal rate and effort Heart is regular without murmur gallop or rub Abdomen soft nontender, flat Extremities are free of edema. Right ankle cleanly dressed surgical site. Good cap refill all digits. Skin is free of rash or lesions. Test 01/04/17 18:24 01/05/17 01:00 01/05/17 06:05 Prothrombin Time 10.9sec (8.1-12.5) Prothromb Time International Ratio 1.02ratio Iron Level 46ug/dL (35-150) Total Iron Binding Capacity 280ug/dL (250-450) Percent Iron Saturation 16%sat (15-50) Unsaturated Iron Binding 234.2ug/dL Ferritin 189ng/mL (13-150) Hold Benitez Top Tube Received (Received) Urine Color Yellow (YELLOW) Urine Appearance Clear (CLEAR,HAZY) Urine pH 6.0 (5.0-8.0) Urine Specific [place] 1.021 (1.003-1.035) Urine Protein Negativemg/dL (NEG,TRACE) Urine Glucose (UA) Negativemg/dL (NEGATIVE) Urine Ketones 40mg/dL (NEGATIVE) Urine Occult Blood Small (NEGATIVE) Urine Nitrite Negative (NEGATIVE) Urine Bilirubin Negative (NEGATIVE) Urine Urobilinogen Normalmg/dL (NORMAL) Urine Leukocyte Esterase Negative (NEGATIVE) Urine RBC 3-10/hpf (0-2) Urine WBC 0-5/hpf (0-5) Urine Epithelial Cells Few/hpf (NONE-MOD) Urine Crystals None seen (NONE SEEN) Urine Bacteria Few/hpf (NONE-FEW) Urine Hyaline Casts None/lpf (NONE) Urine Granular Casts None seen (NONE SEEN) Urine Waxy Casts None seen (NONE SEEN) Urine Red Blood Cell Casts None seen (NONE SEEN) Urine White Blood Cell Casts None seen (NONE SEEN) Urine Mucus Present (None Seen) Urine Trichomonas None seen (NONE SEEN) Urine Yeast None (NONE SEEN) Urine Culture Reflexed Not indicated Urine Random Sodium 93mEq/L White Blood Count 8.6th/mm3 (3.8-10.1) Red Blood Count 3.71mil/mm3 (3.90-5.20) Hemoglobin 10.6g/dL (12.0-15.6) Hematocrit 31.3% (35.0-46.0) Mean Corpuscular Volume 84.4fL (81-100) Mean Corpuscular Hemoglobin 28.6pg (27.0-35.0) Mean Corpuscular Hemoglobin Concent 33.9% (32.0-37.0) Red Cell Distribution Width 12.6% (12.3-15.4) Platelet Count 306bil/L (150-400) Neutrophils (%) (Auto) 64.7% (40-74) Lymphocytes (%) (Auto) 25.8% (14-46) Monocytes (%) (Auto) 9.2% (4-12) Eosinophils (%) (Auto) 0% (0-5) Basophils (%) (Auto) 0.1% (0-3) Sodium Level 126mEq/L (134-144) Potassium Level 3.9mEq/L (3.5-5.2) Chloride Level 90mEq/L (97-108) Carbon Dioxide Level 20mmol/L (18-29) Blood Urea Nitrogen 12mg/dL (8-27) Creatinine 0.62mg/dL (0.57-1.00) Estimat Glomerular Filtration Rate 136mL/min (>59) Glucose Level 111mg/dL (60-99) Calcium Level 8.8mg/dL (8.5-10.1) Phosphorus Level 4.6mg/dL (2.5-4.9) Magnesium Level 1.9mg/dL (1.6-2.6) Total Bilirubin 0.4mg/dL (0.0-1.2) Aspartate Amino Transf (AST/SGOT) 20U/L (0-50) Alanine Aminotransferase (ALT/SGPT) 8U/L (0-32) Alkaline Phosphatase 54U/L (25-165) Total Protein 5.9g/dL (6.4-8.4) Albumin 3.8g/dL (3.4-5.0) Procalcitonin 0.06ng/mL (0.00-0.08) Thyroid Stimulating Hormone (TSH) 1.820uIU/mL (0.450-4.500) Discharge Medications Discharge Medications Aspirin (Aspirin) 81 Mg Tablet 81 MG PO DAILY Prescribed by: VU CARRERA MD Divalproex ER (Divalproex ER) 500 Mg Tab.er.24h 750 MG PO HS (Reported) *DAILY DOSING ONLY* Swallowed whole without chewing to avoid local irritation of the mouth and throat. Fluoxetine (Fluoxetine) 10 Mg Capsule 10 MG PO DAILY (Reported) Lamotrigine ER (Lamotrigine ER) 100 Mg Tab.er.24 100 MG PO HS (Reported) As needed Clonazepam (Clonazepam) 0.5 Mg Tablet 0.25 MG PO TID PRN PRN For Anxiety ( Reported) oxyCODONE-Acetaminophen 5-325 mg (oxyCODONE-Acetaminophen 5-325 mg) 1 Each Tablet 1 TAB PO Q4H PRN PRN For Pain Prescribed by: VU CARRERA MD Followup Plan Disposition: Home with home health for PT Discharge Diet: Low fat, Low Sodium Discharge Activity: Home Health Phyical Therapy Patient Instructions You were hospitalized due to right ankle fracture and underwent ORIF. Please continue physical therapy at home. Please continue pain medications as needed. Home health physical therapy requested. Please follow-up with PCP in 1 week. per orthopedics instructions Strict nonweightbearing on the right lower extremity using a walker or knee scooter if appropriate. Continue formal physical therapy for mobility, gait safety. Continue by mouth pain medications as needed. Continue ASA 81 mg EC by mouth daily 4 weeks for DVT prophylaxis per Dr. Reeves. Follow-up in 2 weeks at [facility] orthopedic clinic with Dr. Harrison Reeves for removal of yung, application of Steri-Strips with right three-view ankle x-rays on arrival. Follow up in 6 weeks at [facility] orthopedic clinic with Dr. Harrison Reeves for checkup with right three-view ankle x-rays on arrival. Follow-up Provider: Tami Bronson MD Follow-up with PCP in: 1 week Provider: Harrison Reeves MD Follow-up in: 2 weeks Time spent 35 minutes coordinating discharge copies to: Tami Bronson MD; Harrison Reeves MD, Melaku MD January 07, 2017 12:45
--- NOTE | 2017-01-07 15:42 | NUR ---
Discharge To home via private vehicle with friend at 15:35. Steady transfer to wheelchair with FWW. IV discontinued intact. All belongings sent with pt. Pt and friend express understanding of all discharge instructions, including medications and followup.
== END 2017-01-07 15:38 | disposition home health service (06) | DRG 493 ==
LOC: EDBD 16:20 → SED 16:20 → MOC 23:20 → OSC 01-05 10:03
PROVIDERS: ADMIT Hospitalist; ATTEND Hospitalist
PROC: 0QSJXZZ Reposition Right Fibula, External Approach (ICD-10-PCS; 2017-01-04)
PROC: 0QSG04Z Reposition Right Tibia with Internal Fixation Device, Open Approach (ICD-10-PCS; 2017-01-05)
PROC: 0QSJ04Z Reposition Right Fibula with Internal Fixation Device, Open Approach (ICD-10-PCS; principal; 2017-01-05 09:00)
DX: S82.851A Displaced trimalleolar fracture of right lower leg, initial encounter for closed fracture (principal); E87.1 Hypo-osmolality and hyponatremia; F33.9 Major depressive disorder, recurrent, unspecified; W17.81XA Fall down embankment (hill), initial encounter; Y93.01 Activity, walking, marching and hiking; Y92.821 Forest as the place of occurrence of the external cause; Y99.8 Other external cause status; Z87.891 Personal history of nicotine dependence; D64.9 Anemia, unspecified

== ENCOUNTER 2017-01-08 04:30 | Emergency (ER) | payer MEDICARE, OTHER ==
[~2017-01-08 04:30] MED LIST: ASPI-973 PO; DIVA500T14 PO; FLUO10CA20 PO; KLO5T PO; LAMO100T66 PO; OXYC1TAB24 PO
[2017-01-08] MEDS ORDERED: Rocuronium 10 mg/mL 5 mL Inj ONE (04:31)
[2017-01-08 04:43] LABS: BASOPHILS % (AUTO) 0.1 % (0-3); EOSINOPHILS % (AUTO) 1.2 % (0-5); MONOCYTES % (AUTO) 3.9 % (4-12); Mean Corpuscular Hemoglobin 29.3 pg (27.0-35.0); Mean Corpuscular Volume 87.9 fL (81-100); NEUTROPHILS % (AUTO) 41.1 % (40-74); Platelet Count 250 bil/L (150-400)
--- NOTE | 2017-01-08 04:52 | ABG ---
DateTimeAnalyzed 04:48:00 -_ pH ____7.130 - 7.350 7.450 pCO2 ___61.9__ -mmHg 35.0 45.0 pO2 243 -mmHg 69.0 116 HCO3- ___19.7__ -mmol/L 22.0 26.0 ABE ___-9.0__ -mmol/L -2.0 2.0 tHb ____8.6__ -g/dL O2Hb ___69.7__ -% COHb ___28.1__ -% MetHb ____1.5__ -% sO2 ___99.0__ -% FIO2 ___50.0__ -% PEEP ____5.0__ -cmH2O Set_RR ___16.0__ -b/min Vt __400.0__ -L Drawn By MK - Date/Time Notified____ 04:51:00 -_ Oxygen Device 1 VENTILATOR - Notified By MK - Notified Whom Dr Jeronimo - B 758 -mmHg tO2 ____9.0__ -Vol% OrderingPhysicianInitials CR - Unruly test _Positive -
[2017-01-08 04:59] LABS: INR 1.01 ratio
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
[2017-01-08 05:09] LABS: Magnesium 1.6 mg/dL (1.6-2.6)
[2017-01-08 05:33] VITALS: O2SAT 98
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
== END 2017-01-08 05:06 | disposition short-term general hospital (02) ==
LOC: EDBD → SED 04:30 → MERGE 04:30 → SED 05:06
DX: T20.36XA Burn of third degree of forehead and cheek, initial encounter (principal); T22.252A Burn of second degree of left shoulder, initial encounter; T22.241A Burn of second degree of right axilla, initial encounter; T24.212A Burn of second degree of left thigh, initial encounter; T21.22XA Burn of second degree of abdominal wall, initial encounter; T31.11 Burns involving 10-19% of body surface with 10-19% third degree burns; J96.00 Acute respiratory failure, unspecified whether with hypoxia or hypercapnia; I46.9 Cardiac arrest, cause unspecified; J70.5 Respiratory conditions due to smoke inhalation; X00.0XXA Exposure to flames in uncontrolled fire in building or structure, initial encounter; Y93.89 Activity, other specified; Y99.8 Other external cause status; Y92.019 Unspecified place in single-family (private) house as the place of occurrence of the external cause
CPT/HCPCS: 36415; 36620; 51702; 71010; 72170; 80053; 82375; 82803; 83735; 85025; 85610; 93005; 94799; 99291; G0390